=== PATIENT | male | born 1945 | race Caucasian/White ===

== ENCOUNTER → 2020-04-01 | Outpatient (CLI) | payer MEDICARE, OTHER ==
--- NOTE | 2020-04-01 13:17 | REPPI ---
INDICATION: ELEVATED PSA. COMPARISON: None. TECHNIQUE: Transrectal ultrasound and sonographic guidance. FINDINGS: Trans rectal prostate sonography demonstrates unremarkable seminal vesicles. Prostate gland is heterogeneously enlarged with calcifications and cystic changes noted. Glandular dimensions are measured at 5.1 x 4.1 x 5.1 cm with a calculated glandular volume of 55.1 ml. Transrectal sonographic guidance is provided to Dr. Hall who performed trans rectal ultrasound guided needle biopsy procedure. IMPRESSION: Transrectal prostate sonography and sonographic guidance as above. <Electronically signed by Jaylen Irvin > 04/01/20 [id number]
== END ==
LOC: M SMT PRO 09:34
PROVIDERS: ATTEND Urology
DX: R97.20 Elevated prostate specific antigen [PSA] (principal)
CPT/HCPCS: 55700; 76872; 76942; G0416

== ENCOUNTER → 2023-04-29 | Outpatient (REF) | payer MEDICARE, OTHER | LOC: M SMT 15:25 | PROVIDERS: ATTEND Urology | DX: N21.0 Calculus in bladder (principal) ==